=== PATIENT | female | born 1955 | race Caucasian/White ===

== ENCOUNTER → 2023-07-23 11:43 | Outpatient (REF) | payer MEDICARE, BC, SELFPAY | LOC: HWRAD 11:43 | PROVIDERS: ATTENDING PHYSICIAN Internal Medicine Cardiovascular Disease | DX: R07.89 Other chest pain (principal); E78.00 Pure hypercholesterolemia, unspecified | CPT/HCPCS: 75571 ==

== ENCOUNTER → 2024-08-24 10:25 | Outpatient (REF) | payer MEDICARE, BC, SELFPAY | LOC: WDC 10:25 | PROVIDERS: ATTENDING PHYSICIAN Internal Medicine | DX: Z12.31 Encounter for screening mammogram for malignant neoplasm of breast (principal) | CPT/HCPCS: 77063; 77067 ==

== ENCOUNTER → 2025-01-12 14:15 | Outpatient (REF) | payer MEDICARE, BC, SELFPAY ==
[2025-01-12 14:49] LABS: Hematocrit 40.8 % (37.0-47.0); Hemoglobin 12.8 g/dL (12.0-16.0); Mean Corp Hgb Conc. 31.4 g/dL (33.0-37.0); Mean Corpuscular Volume 88.9 fL (81.0-99.0); Nucleated Red Blood Cells % 0 %; Platelet Count 224 10^3/uL (130-400); Red Cell Dist. Width 13.4 % (11.5-14.5)
[2025-01-12 15:08] LABS: ALT (SGPT) 18 U/L (0-35); AST (SGOT) 23 U/L (14-36); Albumin 4.3 g/dl (3.5-5.0); Alkaline Phosphatase 43 U/L (38-126); Blood Urea Nitrogen 25 mg/dl (7-17); Calcium 9.9 mg/dl (8.4-10.2); Carbon Dioxide 32 mmol/L (22-30); Chloride 103 mmol/L (98-107); Glucose 92 mg/dl (70-99); Potassium 4.3 mmol/L (3.5-5.1); Sodium 138 mmol/L (135-145); Total Protein 6.6 g/dl (6.3-8.2); eGFR > 60.00
== END ==
LOC: REG 14:15
PROVIDERS: ATTENDING PHYSICIAN Surgery Plastic and Reconstructive Surgery; FAMILY PHYSICIAN Internal Medicine
DX: Z01.812 Encounter for preprocedural laboratory examination (principal); Z01.810 Encounter for preprocedural cardiovascular examination
CPT/HCPCS: 36415; 80053; 85025; 93005

== ENCOUNTER 2025-01-27 10:35 | Inpatient (IN) | payer MEDICARE, BC, SELFPAY ==
--- NOTE | 2025-01-25 11:08 | CM ---
Addendum entered by Elin Snow RN 01/25/25 11:18:
CM spoke with patient via phone. Patient lives independently with spouse. Patient does not have a history of VN, SNF or DME> Patient is active with her PCP in [place]. Patient has medication coverage.
Patient is agreeable to [facility]. CM updated [facility] Admission RN with new referral.
PLAN: Home with [facility].
Original Note:
[facility] was updated that patient's local address will be:
[address] [place] [address] Drive
[place] [id number]
--- NOTE | 2025-01-25 11:29 | VNURNOTE ---
Chart reviewed. PM-[facility] referral placed in [facility]. Will follow up with pt in hospital post-op.
[2025-01-27] VITALS (16 sets, daily range): BP systolic 10–167; BP diastolic 67–87; BMI 17.1
[2025-01-27] MEDS: NORMOSOL-R/PLASMALYTE-A 1000 IV (11:10)
[2025-01-27] MEDS: TYLENOL 1000 MG PO ×2 (12:01→19:51)
[2025-01-27 12:07] LABS: Prealbumin (Transthyretin) 27.4 mg/dl (17.6-36.0)
[2025-01-27 12:21] LABS: Vitamin D, 25-OH*** 72.3 ng/mL (30-80)
--- NOTE | 2025-01-27 12:25 | W.SUR.PREOP ---
Pre-Operative Surgical Note
-
I have examined this patient prior to the performance of the scheduled procedure.
The patient's condition is unchanged from the time of the current History and
Physical and the patient is able to undergo the scheduled procedure.
--- NOTE | 2025-01-27 14:11 | W.IMMPOSTOP ---
Surgical Immed Post Op Note
-
Primary Surgeon: JOSUÉ Marin MD
Assisting Surgeon:
Pre-op Diagnosis: Bilateral implant status, capsular contracture, ruptured implant, high risk for breast cancer
Post-op Diagnosis: Same
Procedure Performed: Bilateral breast immediate reconstruction with tissue expanders, ADM insertion
Anesthesia Type: General
Specimen / Cultures: Per Dr. Thomas
Estimated Blood Loss: 30 cc
Complications: None
Operative Findings: As expected
--- NOTE | 2025-01-27 14:11 | OR.RPT ---
Operative Report
Operative Report
Date of surgery: 01/27/2025
Surgeon: JOSUÉ Marin MD
Preoperative diagnosis:
1. Breast implant status
2. Grade 4 capsular contracture
3. High risk for breast cancer
Postoperative diagnosis: Same
Procedure:
1. Bilateral immediate breast reconstruction with partial submuscular tissue expanders
2. Lateral sling technique for ADM insertion
Complications: None
Anesthesia: General
EBL: 30
Top Screw size: 11 cm, Filled 150 cc bilaterally
Indications for procedure: Patient was referred to me by Dr. Thomas with a high risk of breast cancer, 34-year-old implants with severe capsular contracture and concern for rupture. She was planned to undergo bilateral nipple sparing mastectomy.
We discussed her options for breast reconstruction at length including implant based and autologous options. The patient opted for immediate reconstruction with tissue expanders. She understands that the final reconstruction will be staged. We
also discussed the use of ADM and spy angiography. Risks include reconstructive failure, capsular contracture, infection, delayed wound healing, mastectomy skin flap necrosis, hematoma, seroma and need for repeat procedure. Patient understood
these risks and desired to proceed. Consents were signed accordingly.
Procedure in detail: Patient was identified the preoperative area and the surgical site was confirmed to be the bilateral breast. All questions were answered and consents were confirmed. Patient was then sat upright and normal anatomical landmarks
were marked including midline and inframammary fold. Patient was then taken back to the operating room placed supine on the table. She was prepped and draped in the usual sterile fashion using ChloraPrep solution. A Cat catheter was placed. A
timeout for patient safety was performed was confirmed that bilateral SCDs were in place and preoperative antibiotics administered. The procedure began with Dr. Thomas first performing the mastectomy. Her op report will be dictated separately.
When I entered the procedure, the first sided mastectomy had been completed. As such I inspected the wound bed of the chest wall and ensured meticulous hemostasis. The base width was measured and appropriate tissue supervisor public health nursing was selected. Marcaine
block was performed in the subpectoral and lateral and costal spaces. The pectoralis muscle was then raised with Bovie electrocautery. It was released off the inframammary fold laterally. One 6 x 16 sheets of Cortiva ADM was soaked in antibiotic
solution and meshed with a 10 blade. This construct was then to the lateral chest wall at the boundary of the breast. The supervisor public health nursing was then sutured to the chest wall with a series of 2-0 silk sutures in the submuscular position. The ADM was then
covered over the supervisor public health nursing and sutured to the lateral boundary of the pectoralis muscle with 2-0 Vicryl. 2 drains were then placed in the preaxial area line with a long subcutaneous tunnel and sutured in place with 2-0 Prolene sutures. The wound
was irrigated with double antibiotic solution. The mastectomy incisions were then closed with a series of 3-0 Vicryl's in the deep subcutaneous tissues followed by 3-0 and 4-0 Monocryl's in the deep dermis and superficial skin.
Attention was then placed on the contralateral side after completion of the mastectomy. The exact same procedure was performed. The pectoralis was raised and Marcaine blocks were performed. An supervisor public health nursing of the same size was opened and one sheet of
ADM rehydrated soaked in antibiotic solution and sutured to the lateral boundary of the breast pocket. The supervisor public health nursing was then sutured to the chest wall using 2-0 silks. Pectoralis and intercostal blocks were performed. Meticulous hemostasis was
ensured and the wound was irrigated with double antibiotic solution consisting of Ancef and gentamicin. Betadine was not used due to allergy. The wound was closed in layers with 3-0 Vicryl followed by 3-0 Monocryl and 4-0 Monocryl superficial skin.
The wounds were dressed accordingly and a supportive bra was placed. The patient was extubated taken to the PACU for further care. All counts were correct at the end the case was performed out complication.
--- NOTE | 2025-01-27 14:25 | W.DCSUMMARY ---
Discharge Summary
Discharge Data
Date of Admission: 01/27/25
Date of Discharge: 01/28/25
-
Pending Results: No
Hospital Course
Patient was admitted postoperatively following bilateral mastectomy and immediate reconstruction with tissue expanders. She followed a routine postoperative course and was progressively able to ambulate, void, pain controlled on oral medications.
She was discharged on postop day 1 with close surgical follow-up and a visiting nurse.
Discharge Plan
-
Patient Disposition: Home (Routine Discharge)
Discharge Diagnosis/Procedures: s/p bilateral mastectomy and immediate reconstruction with tissue expanders
Condition: Good
Diet: Regular
Activity: No strenuous activity
Additional Activity: No heavy lifting >10lbs, T sukhwinder arms
Driving Restrictions: Not until seen by your Dr
Bathing Restrictions: OK to Shower
Other Services: [facility]N
Wound Care: Strip and record drain output twice daily, light compression bra, dressings to be removed in office
Referrals:
UNKNOWN - PT DOES,NOT KNOW [Family Provider]
Prescriptions:
New
acetaminophen [Tylenol Extra Strength] 500 mg Tablet
1,000 mg PO Q6 30 Days Qty: 240 0RF
gabapentin 100 mg Capsule
300 mg PO TID 30 Days Qty: 270 0RF
diazepam 5 mg Tablet
2 - 4 mg PO TIDPRN PRN (Reason: Muscle Spasms) 14 Days Qty: 42 0RF
oxycodone 5 mg Tablet
5 mg PO Q4HPRN PRN (Reason: breakthrough mod-severe pain) 7 Days Qty: 20 0RF
cefadroxil 500 mg capsule
500 mg PO BID Qty: 42 0RF
Continued
valsartan 80 mg Tablet
120 mg PO DAILY
cholecalciferol (vitamin D3) [Vitamin D3] 125 mcg (5,000 unit) Tablet
125 mcg PO MOWEFR
multivitamin Tablet
1 tab PO DAILY
famotidine [Pepcid AC] 10 mg Tablet
10 mg PO DAILY
Premarin 0.625 mg/gram Cream
0.625 mg VAGINAL DAILY
Discharge Orders:
Discharge Patient (As Directed); Ordered 01/28/25
Ordered By: Devonte Marin
Discharge Date and Time
Print Language: PANAMANIAN
--- NOTE | 2025-01-27 15:39 | VNURNOTE ---
Patient in OR. PM-Liason called spouse. No answer, left message explaining VN services and left contact number if questions. PM-[facility]N referral accepted in [facility].
--- NOTE | 2025-01-27 16:25 | W.IMMPOSTOP ---
Surgical Immed Post Op Note
-
Primary Surgeon: Martha
Assisting Surgeon: None
Pre-op Diagnosis: High risk for breast cancer; ruptured breast implant
Post-op Diagnosis: Same-
Procedure Performed: Bilateral nipple sparing mastectomies
Anesthesia Type: GET
Specimen / Cultures: Bilateral breasts, bilateral implants and capsules
Estimated Blood Loss: 20cc
Complications: None
Operative Findings: None
--- NOTE | 2025-01-27 16:26 | OR.RPT ---
Operative Report
Operative Report
Date of procedure: 01/27/2025
Surgeon: Martha
Preoperative diagnosis: High risk for breast cancer; ruptured implant
Postoperative diagnosis: Same
Procedure: Bilateral nipple sparing mastectomies and bilateral capsulectomies with removal of implants
The patient is a 69-year-old female who is high risk for development of breast carcinoma and had longstanding saline silicone implants in place. 1 was ruptured and she wanted to present for removal and replacement of the implants and undergo a
prophylactic risk-reducing bilateral mastectomies. This will be performed in conjunction with the plastic surgeon.
The patient presented to the same-day surgical services unit on the day of the procedure. She was prepped and DVT and antibiotic prophylaxis were provided. She was taken to the operating room in the supine position general anesthesia was induced.
A Cat catheter was inserted using aseptic technique. Both breasts and chest were prepped and draped in the usual sterile fashion. An inframammary incision was made inferior on the right breast. This dissection was carried down to the implant
capsule using the cautery. The breast was elevated off the implant capsule using the cautery and lighted retractor. The entire intact capsule and implant were removed off the chest wall oriented and sent for pathologic examination. Next, skin and
subcutaneous tissue were elevated off the breast tissue using the PlasmaBlade and Invuity retractor. Due to the anatomy. two separate sections of breast were sent for permanent analysis. one from the inferior portion of the breast and the other in
the superior segmen. Hemostasis was maintained with the cautery or with 3-0 silk tie. Warm moist pack was placed in the resection cavity and in the same manner at the left mastectomy was performed as well as capsulectomy and implant removal. The
left implant was ruptured requiring oversewing of the capsule to keep the contents in place.Plastic surgery entered to begin the reconstructive portion of the procedure. At this juncture all sponge needle and instrument counts were correct,
([id number],,)
[2025-01-27] MEDS: DILAUDID 0.5 MG IV ×2 (17:46→18:16)
[2025-01-27] MEDS: NEURONTIN PO ×2 (19:50→22:15)
[2025-01-27] MEDS: COLACE 100 MG PO (19:51)
[2025-01-27] MEDS: ROXICODONE 5 MG PO (20:38)
[2025-01-27] MEDS: ANCEF 5 IV (22:09)
[2025-01-27] MEDS: NEURONTIN 300 MG PO (22:15)
[2025-01-28] MEDS: TYLENOL 1000 MG PO ×3 (00:21→11:28)
[2025-01-28] MEDS: VALIUM 5 MG PO ×2 (00:23→11:31)
[2025-01-28 03:22] VITALS: BP 149/74
[2025-01-28] MEDS: ROXICODONE 5 MG PO ×2 (03:49→07:55)
[2025-01-28] MEDS: ANCEF 5 IV (06:04)
[2025-01-28 07:40] VITALS: BP 155/76
[2025-01-28] MEDS: NEURONTIN 300 MG PO (07:52)
[2025-01-28] MEDS: PEPCID 10 MG PO (07:52)
[2025-01-28] MEDS: DIOVAN 120 MG PO (07:55)
[2025-01-28] MEDS: COLACE 100 MG PO (07:55)
[2025-01-28 07:57] LABS: Hematocrit 34.0 % (37.0-47.0); Hemoglobin 11.1 g/dL (12.0-16.0)
[2025-01-28 08:10] LABS: Blood Urea Nitrogen 14 mg/dl (7-17); Calcium 8.5 mg/dl (8.4-10.2); Carbon Dioxide 31 mmol/L (22-30); Chloride 103 mmol/L (98-107); Estimated Creatinine Clearance 64 ml/min; Glucose 90 mg/dl (70-99); Potassium 4.5 mmol/L (3.5-5.1); Sodium 136 mmol/L (135-145); eGFR > 60.00
--- NOTE | 2025-01-28 09:27 | CM ---
Chart reviewed. Patient will d/c home today
[facility] accepted for services. [facility]N for drain care
Met w/ patient and family. IMM verbally reviewed, copy provided, copy on chart
[facility]

Plan: Home w/ [facility]
--- NOTE | 2025-01-28 10:41 | W.PN.UPDATE ---
Update Note
Progress Note Update
The pt is POD #1 S/P bilateral prophylactic mastectomies and replacement of implants with hall director.
She slept last night and feels better in keeping up with her pain regimen. D/C to home and will follow up with Dr. Marin
on Thursday and myself in two weeks.
[2025-01-28 11:42] VITALS: BP 164/67
== END 2025-01-28 12:00 | disposition home health service (06) | DRG 584 ==
LOC: 2 NORTH 10:35
PROVIDERS: Surgery Plastic and Reconstructive Surgery; ADMITTING PHYSICIAN Surgery
PROC: 0HTV0ZZ Resection of Bilateral Breast, Open Approach (ICD-10-PCS; 2025-01-27)
PROC: 0HHV0NZ Insertion of Tissue Expander into Bilateral Breast, Open Approach (ICD-10-PCS; 2025-01-27)
DX: Z40.01 Encounter for prophylactic removal of breast (principal); T85.41XA Breakdown (mechanical) of breast prosthesis and implant, initial encounter; T85.44XA Capsular contracture of breast implant, initial encounter; N63.10 Unspecified lump in the right breast, unspecified quadrant; Z98.82 Breast implant status; Y80.2 Prosthetic and other implants, materials and accessory physical medicine devices associated with adverse incidents
CPT/HCPCS: 80048; 82306; 84134; 85014; 85018; 87070; 88304; 88307; 88311; 88341; 88342; 88360; 97162; A4648; C1729; C1789; L8000; Q4100